=== PATIENT | male | born 1925 | race Asian ===

== ENCOUNTER 2017-02-21 12:35 | Inpatient (IN) | payer MEDICARE ==
[~2017-02-21] VITALS: Ht 172.7 cm; Wt 81.2 kg
[~2017-02-21 12:35] MED LIST: CINNAMON500 MG PO; DILT-XR120 MG PO; FISH OIL 1,0001 EAC2 PO; HYDRALAZINE HC100 MG PO; HYDROCHLOROTH12.5 MG PO; JANUVIA50 MG PO; KETOROLAC TR30 MG/ML OS; LATANOPROST2.5 ML OU; LEXAPRO10 MG PO; LOSARTAN POTASS25 MG PO; METOPROLOL SUC100 MG PO; OMEPRAZOLE20 M1 PO; PRAVASTATIN SOD20 MG PO; PREDNISOLO15 MG/5 ML OS; QUETIAPINE FUMA50 MG PO; VITAMIN D-32000 UNIT PO
[2017-02-21 13:13] LABS: BASOPHILS % 0.2 % (0.0-1.0); EOSINOPHILS # (AUTO) 0.2 (0.0-0.4); EOSINOPHILS % 1.2 % (0.0-6.0); HEMATOCRIT 42.1 % (38.2-49.6); HEMOGLOBIN 14.3 g/dL (14.0-18.0); MEAN CORPUSCULAR HEMOGLOBIN 30.8 pg (28-32); MEAN CORPUSCULAR VOLUME 90.7 fL (81-99); MONOCYTES # (AUTO) 0.8 (0.2-0.8); NEUTROPHILS # (AUTO) 11.5 (2.1-6.9); NEUTROPHILS % 85.3 % (38.7-80.0); PLATELET COUNT 232 x10e3/uL (140-360); RED BLOOD COUNT 4.64 x10e6/uL (4.3-5.7); RED CELL DISTRIBUTION WIDTH 13.8 % (11.7-14.4)
[2017-02-21 13:17] LABS: INR 0.92; PROTHROMBIN TIME 12.8 seconds (11.9-14.5)
[2017-02-21 13:18] LABS: PARTIAL THROMBOPLASTIN TIME 26.5 seconds (23.8-35.5)
[2017-02-21 13:24] LABS: ALBUMIN 3.9 g/dL (3.5-5.0); ALBUMIN/GLOBULIN RATIO 1.1 (0.8-2.0); CALCIUM 10.4 mg/dL (8.4-10.2); CREATININE, SERUM 2.37 mg/dL (0.72-1.25)
[2017-02-21 13:30] LABS: CREATINE KINASE MB 1.6 ng/mL (0.00-5.00); TROPONIN I 0.065 ng/mL (0-0.300)
[2017-02-21 13:43] LABS: AMYLASE 51 U/L (25-125); LIPASE 8 U/L (8-78)
--- NOTE | 2017-02-21 13:45 | Diagnostic Imaging Report ---
PROCEDURE:X-RAY CHEST, ONE VIEW 1301 hrs. COMPARISON:Chest x-ray 07/31/15 INDICATIONS:CHEST PAIN/VOMITING FINDINGS: There are nodular and linear densities measuring 3.5 cm in total length over the mid mediastinum which could represent a medical care evaluation specialist. This was not present on previous exam. The heart is normal in size. Aorta is ectatic calcifications of the arch. No hilar lymphadenopathy. The pulmonary vascular markings are normal. There is no evidence of soft tissue mass or infiltrate. A 4 mm left upper lobe granuloma is stable. No pleural effusion or pneumothorax. The stomach is distended with fluid. There is an air distended loop of bowel beneath the right diaphragm measuring 4.2 cm in diameter. No evidence of free air on this image. Bones: No focal osseous lesions. CONCLUSION: 1. Densities over the mid mediastinum could represent a medical care evaluation specialist. Correlate with clinical history is needed. If absent, recommend correlation with PA and lateral chest x-ray were clinically feasible. 2. Distended bowel loop in the left upper quadrant. This could represent either small bowel or large bowel. If small bowel, this could represent partial small bowel obstruction. 3. No new pulmonary process. Dictated by: Ashwin Gamino M.D. on 02/21/2017 at 13:53 Electronically approved by: Ashwin Gamino M.D. on 02/21/2017 at 13:53
[2017-02-21] MEDS ORDERED: ONDANSETRON HCL INJ 2 MG/ML VIAL IV STA (15:43)
[2017-02-21] MEDS ORDERED: SODIUM CHLORIDE 0.9% 1000ML 1,000 ML IV STA (15:43)
[2017-02-21] MEDS ORDERED: METOCLOPRAMIDE HCL 10 MG/2ML VIAL IV ONE (15:45)
[2017-02-21] MEDS ORDERED: DIATRIZOATE MEGL/DIATRIZOA SOD 30 ML BTL PO ONE (15:52)
--- NOTE | 2017-02-21 17:42 | Diagnostic Imaging Report ---
PROCEDURE: CT ABDOMEN AND PELVIS WITHOUT CONTRAST COMPARISON:None. INDICATIONS:BOWEL OBSTRUCTION, VOMITING TECHNIQUE: Axial CT images through the abdomen and pelvis were obtained without intravenous contrast. Oral contrast was administered. Coronal and sagittal reformations were created. Radiation dose: 608.02 mGy-cm FINDINGS: Lung bases: Diffusely hyperinflated with subpleural microatelectasis. There are large pericardial fat pads. Atherosclerotic calcifications are present in the aorta and coronary arteries. High density object is within the lumen of the esophagus. It is incompletely imaged and results in beam hardening artifact. Liver: Normal attenuation. No evidence of mass. Spleen: Normal size. A few punctate calcifications are present in the parenchyma. Biliary: The gallbladder is present and normal in appearance. No biliary ductal dilatation. Pancreas: Profoundly fatty replaced. Several scattered calcifications are present. No defined soft tissue mass or ductal dilatation. Adrenal Glands: No evidence of mass. Kidneys: Atrophic without cortical mass or hydronephrosis. Vasculature: The aorta is normal in diameter. The arterial structures are heavily calcified. GI: The stomach is distended with fluid and enteric contrast. Multiple small bowel loops are dilated and contain enteric contrast. These dilated small bowel loops measure up to 3.7 cm in diameter. There is small bowel that is interposed between the liver and anterior abdominal wall (axial image 20). Distal to this, the small bowel remains dilated but only contains air extending to a transition point in the right mid abdomen (axial image 63, coronal image 40). Distal to this, the small bowel loops extending to the ileocecal valve are completely collapsed. There is no evidence of pneumatosis. The large bowel is normal in diameter and contains diverticula without associated inflammation. The appendix is nonvisualized and may be absent or collapsed. Peritoneum/Retroperitoneum: No free fluid or fluid collection. No free air. Bladder: Normal. The prostate gland and seminal vesicles are absent. No ureteral dilatation. Lymph nodes: No lymphadenopathy. MSK: Diffuse degenerative changes throughout the spine. There is superior endplate compression of the L2 vertebral body. The spinal canal at this level is patent. There is no evidence of lytic or blastic lesion. CONCLUSION: 1. Small bowel obstruction with transition point in the right artemio-abdomen, likely due to adhesion. No associated soft tissue mass. No evidence of free air. 2. Diverticulosis coli. No CT evidence of diverticulitis. 3. Chronic pancreatitis with profound atrophy of the pancreas. 4. High density material in the distal esophagus of uncertain etiology. Please correlate for history of medical scientific officer placement. 5. Prostatectomy. 6. Severe atherosclerosis. Dictated by: Ashwin Gamino M.D. on 02/21/2017 at 17:49 Electronically approved by: Ashwin Gamino M.D. on 02/21/2017 at 17:49
[2017-02-21] MEDS ORDERED: PANTOPRAZOLE SO40 MG PO (18:17)
[2017-02-21] MEDS ORDERED: CARTIA XT240 MG PO (18:17)
[2017-02-21] MEDS ORDERED: ACETAMINOPHEN325 M1 PO (18:17)
[2017-02-21] MEDS ORDERED: BENZOCAINE/TETRACAINE/BUTAMBEN AERO SPRAY 56 GM CAN TOP ONE (18:30)
[2017-02-21] MEDS ORDERED: LIDOCAINE VISC 2% SOLN 15 ML UDC PO ONE ×2 (18:30)
[2017-02-21] MEDS ORDERED: DEXTROSE 50% SYRINGE 50 ML IV PRN (18:45)
[2017-02-21] MEDS ORDERED: LEVOFLOXACIN 500MG/D5W 100ML IV SCH (18:45)
[2017-02-21] MEDS: D5.45%NS/KCL 20MEQ 1,000 ML IV SCH (20:00)
[2017-02-21] MEDS: METRONIDAZOLE 500MG/NS 100ML 100 ML IV SCH (20:00)
[2017-02-21] MEDS: LEVOFLOXACIN 500MG/D5W 100ML 100 ML IV SCH (20:01)
[2017-02-21 20:45] VITALS: BP 185/92
[2017-02-21] MEDS: INSULIN REGULAR, HUMAN 100 UNIT/1 ML 3ML VIAL SQ SCH (20:45)
[2017-02-21 21:51] VITALS: BP 185/92
[2017-02-22] VITALS (7 sets, daily range): BP systolic 119–154; BP diastolic 59–73
[2017-02-22] MEDS ORDERED: LATANOPROST2.5 ML OP (04:13)
[2017-02-22] MEDS: METRONIDAZOLE 500MG/NS 100ML 100 ML IV SCH ×3 (04:43→20:00)
[2017-02-22 06:57] LABS: BASOPHILS % 0.3 % (0.0-1.0); EOSINOPHILS # (AUTO) 0.1 (0.0-0.4); EOSINOPHILS % 1.4 % (0.0-6.0); HEMATOCRIT 36.7 % (38.2-49.6); HEMOGLOBIN 12.3 g/dL (14.0-18.0); LYMPHOCYTES % 10.8 % (18.0-39.1); MEAN CORPUSCULAR HEMOGLOBIN 30.8 pg (28-32); MEAN CORPUSCULAR HGB CONC 33.5 g/dL (31-35); MONOCYTES # (AUTO) 0.8 (0.2-0.8); MONOCYTES % 9.2 % (4.4-11.3); NEUTROPHILS % 77.6 % (38.7-80.0); PLATELET COUNT 193 x10e3/uL (140-360); RED BLOOD COUNT 3.99 x10e6/uL (4.3-5.7); RED CELL DISTRIBUTION WIDTH 13.9 % (11.7-14.4)
[2017-02-22 07:17] LABS: ANION GAP 16.7 mmol/L (8-16); CALCIUM 9.2 mg/dL (8.4-10.2); CREATININE, SERUM 2.27 mg/dL (0.72-1.25); POTASSIUM 3.7 mmol/L (3.5-5.1)
[2017-02-22] MEDS: D5.45%NS/KCL 20MEQ 1,000 ML IV SCH ×2 (07:56→23:16)
--- NOTE | 2017-02-22 08:18 | History and Physical ---
PRIMARY CARE PHYSICIAN: Dr. Merrill GI DOCTOR: Dr. Bolivar CHIEF COMPLAINT: Nausea, vomiting and abdominal pain. HISTORY OF PRESENT ILLNESS: An 89-year-old man with a history of diabetes mellitus, who had upper endoscopy [address] Bolivar. He went home and felt nauseous and had some vomiting and abdominal discomfort the following day. This worsened, and therefore, came to the hospital. Here was found to have small-bowel obstruction, and admitted for further evaluation and management. PAST MEDICAL HISTORY: Diabetes mellitus, prostate cancer, status post resection, bladder cancer, status post chemotherapy, cataract surgery, glaucoma, detached retina, chronic kidney disease, stage 3, hyperlipidemia, and hearing deficits. PAST SURGICAL HISTORY: Detached retina, hernia, prostate resection. ALLERGIES: PER ELECTRONIC MEDICAL RECORDS. FAMILY HISTORY/SOCIAL HISTORY: Patient is . She has 3 children. No alcohol, illicits or cigarettes. 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 MEDICATIONS: Per electronic medical records. REVIEW OF SYSTEMS: Denies any dizziness or chest pain. PHYSICAL EXAMINATION VITAL SIGNS: Reviewed. GENERAL: A tired-appearing man resting in bed. HEENT: Anicteric. NG tube in place. CARDIOVASCULAR: Normal S1 and S2. LUNGS: Moderate breath sounds. ABDOMEN: Soft, nontender and nondistended. EXTREMITIES: No edema. SKIN: Dry. PSYCHIATRIC: Normal affect. LABS: Reviewed. MEDICATIONS: Reviewed. ASSESSMENT AND PLAN: This is an 89-year-old man with: 1. Small-bowel obstruction: Nasogastric tube in place. Surgery on board. Gastroenterology consultation as well. 2. Diverticulosis: No evidence of diverticulitis. 3. Chronic pancreatitis. 4. High density material in the distal esophagus: Defer to gastroenterology services. Patient recently had an upper endoscopy. 5. Normocytic anemia: Mild. Will follow. 6. Chronic kidney disease, stage 3: Patient is at baseline. 7. Hypercalcemia: This has resolved. 8. Hypertension: Use p.r.n. medications. 9. Prophylaxis: Will use sequential compression devices and intravenous Pepcid. 10. Disposition: Gastroenterology and surgical consultation. Job#: [id number] [place]
[2017-02-22] MEDS: FAMOTIDINE 20 MG/2 ML VIAL IV SCH ×2 (08:44→16:49)
--- NOTE | 2017-02-22 09:16 | Consultation ---
DATE OF CONSULTATION: February 22, 2017 CHIEF COMPLAINT: Pain and vomiting. HISTORY OF PRESENT ILLNESS: The patient is an 89-year-old male with a 2-day history of periumbilical abdominal pain and intermittent vomiting. No flatus. He denies, fever chills or diarrhea, however. PAST MEDICAL HISTORY: Significant for diabetes, history of prostate cancer, bladder cancer, glaucoma, chronic renal insufficiency, hyperlipidemia, poor hearing. SURGICAL HISTORY: Positive for prostate resection, hernia repair. SOCIAL HABITS: The patient has no history of alcohol abuse or smoking. REVIEW OF SYSTEMS: He has no chest pain or shortness of breath. No cough. ALLERGIES: THE PATIENT IS ALLERGIC TO CLONIDINE, LORAZEPAM, SULFA. PHYSICAL EXAMINATION VITAL SIGNS: Stable. He is afebrile. GENERAL: He is awake, alert and in no apparent distress. HEENT: Sclerae nonicteric. NECK: Supple. LUNGS: Clear. HEART: Regular rate and rhythm. No murmur. ABDOMEN: Soft. No focal tenderness or mass. NG tube is in place with a large amount of bilious material in the cannister. EXTREMITIES: Without cyanosis or edema. White cell count is 8.9, hemoglobin of 12. Creatinine of 2.2. Potassium 3.7. CT scan showed evidence of intestinal obstruction in the right abdomen. ASSESSMENT: Bowel obstruction likely secondary to adhesions. PLAN: Nasogastric tube decompression. Serial abdominal x-rays. Thank you for the consultation. Job#: [id number] [place]
[2017-02-22] MEDS: INSULIN REGULAR, HUMAN 100 UNIT/1 ML 3ML VIAL SQ SCH ×4 (11:30→21:00)
[2017-02-22 16:06] LABS: BILIRUBIN,URINE NEGATIVE (NEGATIVE); CLARITY,URINE CLEAR (CLEAR); COLOR,URINE YELLOW (YELLOW); KETONES,URINE NEGATIVE (NEGATIVE); LEUKOCYTE ESTERASE ,URINE NEGATIVE (NEGATIVE); NITRITE,URINE NEGATIVE (NEGATIVE); PROTEIN,URINE DIPSTICK TRACE (NEGATIVE); URINE UROBILINOGEN 0.2 mg/dL (0.2 - 1)
[2017-02-22] MEDS: LEVOFLOXACIN 500MG/D5W 100ML 100 ML IV SCH (16:49)
--- NOTE | 2017-02-22 18:30 | Consultation ---
DATE OF CONSULTATION: February 22, 2017 This is an 89-year-old male who presented to the hospital because of persistent abdominal pain, nausea and vomiting following an upper endoscopy done about 2 days or so ago. He denies any bleeding along with this problem. His workup revealed that he has evidence of small bowel obstructions with transition point at the right artemio-abdomen likely due to adhesions. He also has evidence of diverticulosis and chronic pancreatitis. He has been having nausea and vomiting intermittently that is why the upper endoscopy was performed. Upper endoscopy, however, only shows esophageal stricture for which he got some dilation and also reflux and gastritis. An NG tube has been placed and he is currently comfortable and doing well. His other medical problem is significant for history of diabetes, history of prostate cancer status post resection, history of bladder cancer, status post chemotherapy, history of cataract surgery, glaucoma, chronic renal disease, hyperlipidemia. ALLERGIES: NONE. PERSONAL/SOCIAL HISTORY: No alcohol use. FAMILY HISTORY: Noncontributory. CURRENT MEDICATIONS: Pepcid, Humulin. REVIEW OF SYSTEMS: Denies any chest pain. Denies any shortness of breath. Denies any dysphagia or odynophagia. Denies any dysuria or hematuria or any kind of syncopal episode. PHYSICAL EXAMINATION GENERAL: He is awake, alert and appears to be stable. He is in no acute distress at this point. VITAL SIGNS: Afebrile currently with stable vital signs. HEENT: Normocephalic, atraumatic. Sclerae anicteric. NECK: Supple. HEART: Sounds regular. LUNGS: Clear. ABDOMEN: Soft. Currently, no distention at this point, nontender. EXTREMITIES: No edema or clubbing. LABORATORY DATA: WBC 8.9, hemoglobin 12.8, hematocrit 36.7, BUN 30, creatinine 2.27. CAT scan showed evidence of small bowel obstructions along with chronic pancreatitis as well as diverticulosis. IMPRESSION 1. Abdominal pain, secondary to nausea and vomiting secondary to small bowel obstruction, currently doing better. . 2. History of reflux disease. Esophageal stricture, status post dilatations. 3. History of gastritis. 4. History of diabetes. RECOMMENDATIONS: Continue on NG tube low intermittent suction. Follow labs and clinically. Will also follow KUB tomorrow. Job#: [id number] [facility]:BRANDO STARKEY MD cc:BENJIE LAMAR MD
[2017-02-23] MEDS: METRONIDAZOLE 500MG/NS 100ML 100 ML IV SCH ×3 (04:09→20:27)
[2017-02-23 04:58] VITALS: BP 163/73
[2017-02-23 06:02] VITALS: BP 142/78
--- NOTE | 2017-02-23 06:21 | Diagnostic Imaging Report ---
EXAM: ABDOMEN-1VIEW (KUB), supine DATE: 02/23/2017 8:00 AM Time stamp on exam: 0529 hours INDICATION: Small bowel obstruction COMPARISON: CT of the abdomen and pelvis February 21, 2017 FINDINGS: LINES/TUBES: None BOWEL PATTERN: Persistent dilated loops of central small bowel. Oral contrast is seen throughout the colon to the rectum. SOFT TISSUES: Multiple surgical clips in the pelvis. LUNG BASES: Not included BONES: No acute findings. IMPRESSION: Persistent findings of partial small bowel obstruction. Signed by: Dr. Josselin Lopez M.D. on 02/23/2017 6:18 AM
[2017-02-23] MEDS: METOCLOPRAMIDE HCL 10 MG/2ML VIAL IV SCH ×3 (07:15→20:27)
--- NOTE | 2017-02-23 07:28 | Progress Note ---
DATE: February 23, 2017 TIME: 7:10 a.m. OVERNIGHT: Patient pulled out his NG tube. REVIEW OF SYSTEMS: Denies any dizziness or chest pain. Has been passing flatus. PHYSICAL EXAMINATION VITAL SIGNS: Reviewed. GENERAL: A tired-appearing man resting in bed. HEENT: Anicteric. CARDIOVASCULAR: Normal S1 and S2. LUNGS: Moderate breath sounds. ABDOMEN: Soft, nontender and nondistended. EXTREMITIES: No edema. SKIN: Dry. PSYCHIATRIC: Normal affect. LABS: Reviewed. MEDICATIONS: Reviewed. ASSESSMENT: An 89-year-old man with: 1. Small-bowel obstruction: Nasogastric tube was pulled out by the patient last night. Ambulate today. He is passing flatus. 2. Diverticulosis: No diverticulitis. 3. Chronic pancreatitis. 4. High-density material in the distal esophagus. 5. Normocytic anemia. 6. Chronic kidney disease, stage 3. 7. Hypercalcemia. 8. Hypertension. PLAN 1. Ambulate the patient. 2. Diet per GI services. 3. KUB this morning shows persistent /small-bowel obstruction. 4. Continue IV Levaquin and IV Flagyl. 5. Start IV Reglan 5 mg IV q.12 h. 6. Leukocytosis has resolved. 7. Follow up renal function today. He does have chronic kidney disease, stage 3. Job#: [id number] JOIE
[2017-02-23] MEDS: INSULIN REGULAR, HUMAN 100 UNIT/1 ML 3ML VIAL SQ SCH ×4 (07:30→20:12)
[2017-02-23 07:57] VITALS: BP 151/68
[2017-02-23] MEDS: FAMOTIDINE 20 MG/2 ML VIAL IV SCH ×2 (10:34→18:05)
[2017-02-23 12:00] VITALS: BP 188/79
[2017-02-23 15:42] VITALS: BP 170/77
[2017-02-23] MEDS: LEVOFLOXACIN 500MG/D5W 100ML 100 ML IV SCH (18:40)
[2017-02-23 19:44] VITALS: BP 143/72
[2017-02-23] MEDS: D5.45%NS/KCL 20MEQ 1,000 ML IV SCH (20:27)
[2017-02-24 00:19] VITALS: BP 141/66
[2017-02-24] MEDS: MORPHINE SULFATE 5 MG/ML VIAL IV PRN ×2 (01:48→21:25)
[2017-02-24] MEDS: ONDANSETRON HCL INJ 2 MG/ML VIAL IV PRN ×3 (01:48→21:25)
[2017-02-24] MEDS: METRONIDAZOLE 500MG/NS 100ML 100 ML IV SCH ×3 (04:25→21:25)
[2017-02-24 05:23] VITALS: BP 154/63
[2017-02-24] MEDS: INSULIN REGULAR, HUMAN 100 UNIT/1 ML 3ML VIAL SQ SCH ×4 (07:30→20:34)
[2017-02-24 07:48] VITALS: BP 152/77
[2017-02-24] MEDS: METOCLOPRAMIDE HCL 10 MG/2ML VIAL IV SCH ×2 (10:01→21:25)
[2017-02-24] MEDS: FAMOTIDINE 20 MG/2 ML VIAL IV SCH ×2 (10:01→16:45)
[2017-02-24 12:00] VITALS: BP 161/92
[2017-02-24 16:30] VITALS: BP 160/70
[2017-02-24] MEDS: LEVOFLOXACIN 500MG/D5W 100ML 100 ML IV SCH (18:00)
[2017-02-24] MEDS: D5.45%NS/KCL 20MEQ 1,000 ML IV SCH (18:33)
--- NOTE | 2017-02-24 18:53 | Diagnostic Imaging Report ---
EXAM: ABDOMEN-1VIEW (KUB) DATE: 02/24/2017 5:38 PM INDICATION: Small bowel obstruction COMPARISON: 02/23/2017 FINDINGS: Numerous surgical clips overlie the pelvis suggesting prostatectomy. Large monitoring device overlies lower abdomen and pelvis on 2 views, limiting evaluation. Upper abdomen excluded, further limiting evaluation. Prominence of small bowel loops less conspicuous. Advanced degenerative changes spine. Residual contrast present colon. IMPRESSION: Exam moderately limited technically as above. Small bowel loops less conspicuous. Signed by: Dr. Estvean Shahid MD on 02/24/2017 6:50 PM
[2017-02-24 20:00] VITALS: BP 161/79
[2017-02-25] VITALS (7 sets, daily range): BP systolic 135–175; BP diastolic 71–92
[2017-02-25] MEDS: METRONIDAZOLE 500MG/NS 100ML 100 ML IV SCH ×3 (04:30→21:28)
[2017-02-25] MEDS: D5.45%NS/KCL 20MEQ 1,000 ML IV SCH (05:08)
[2017-02-25] MEDS: INSULIN REGULAR, HUMAN 100 UNIT/1 ML 3ML VIAL SQ SCH ×4 (07:30→20:34)
[2017-02-25 10:18] LABS: BASOPHILS % 0.4 % (0.0-1.0); EOSINOPHILS # (AUTO) 0.4 (0.0-0.4); EOSINOPHILS % 6.2 % (0.0-6.0); HEMATOCRIT 38.2 % (38.2-49.6); HEMOGLOBIN 12.5 g/dL (14.0-18.0); LYMPHOCYTES # (AUTO) 0.7 (1.0-3.2); LYMPHOCYTES % 10.3 % (18.0-39.1); MEAN CORPUSCULAR HEMOGLOBIN 31.3 pg (28-32); MEAN CORPUSCULAR HGB CONC 32.7 g/dL (31-35); MEAN CORPUSCULAR VOLUME 95.5 fL (81-99); MONOCYTES # (AUTO) 0.7 (0.2-0.8); MONOCYTES % 10.1 % (4.4-11.3); NEUTROPHILS # (AUTO) 4.9 (2.1-6.9); NEUTROPHILS % 72.3 % (38.7-80.0); PLATELET COUNT 147 x10e3/uL (140-360); RED CELL DISTRIBUTION WIDTH 13.5 % (11.7-14.4)
[2017-02-25] MEDS: FAMOTIDINE 20 MG/2 ML VIAL IV SCH ×2 (10:20→16:54)
[2017-02-25] MEDS: METOCLOPRAMIDE HCL 10 MG/2ML VIAL IV SCH ×2 (10:20→21:28)
[2017-02-25 10:43] LABS: ANION GAP 11.5 mmol/L (8-16); CALCIUM 8.4 mg/dL (8.4-10.2); CREATININE, SERUM 1.78 mg/dL (0.72-1.25); MAGNESIUM 1.8 MG/DL (1.3-2.1); PHOSPHORUS 2.9 MG/DL (2.3-4.7); POTASSIUM 4.5 mmol/L (3.5-5.1)
--- NOTE | 2017-02-25 13:18 | Progress Note ---
DATE: February 24, 2017 MEDICINE PROGRESS NOTE TIME OF SERVICE: 7:30 a.m. SUBJECTIVE: Overnight he remains with NG tube. REVIEW OF SYSTEMS: Denies any dizziness, chest pain. VITAL SIGNS: Reviewed. PHYSICAL EXAMINATION GENERAL APPEARANCE: A tired-appearing man resting in bed. HEENT: Anicteric. CARDIOVASCULAR: Normal S1/S2. LUNGS: Moderate breath sounds. ABDOMEN: Soft, nontender. EXTREMITIES: No edema. SKIN: Dry. PSYCHIATRIC: Normal affect. LABS: Reviewed. MEDICATIONS: Reviewed. ASSESSMENT: An 89-year-old man. 1. Small-bowel obstruction. 2. Diverticulosis. 3. Chronic pancreatitis. 4. Normocytic anemia. 5. Chronic kidney disease stage 3. 6. Hypercalcemia. 7. Hypertension. PLAN 1. Continue NG tube. 2. Continue ambulating patient. 3. Continue antibiotics. 4. Continue Reglan. 5. Defer to surgical team. Job#: [id number] [place]
--- NOTE | 2017-02-25 13:21 | Progress Note ---
DATE: February 25, 2017 MEDICINE PROGRESS NOTE TIME OF SERVICE: 6:35 a.m. SUBJECTIVE: Overnight remains with NG tube. REVIEW OF SYSTEMS: Dizziness any dizziness. VITAL SIGNS: Reviewed. PHYSICAL EXAMINATION GENERAL APPEARANCE: A tired-appearing man resting in bed. HEENT: Anicteric. Has NG tube in place. CARDIOVASCULAR: Normal S1/S2. LUNGS: Moderate breath sounds. ABDOMEN: Soft, nontender. EXTREMITIES: No edema. SKIN: Dry. PSYCHIATRIC: Flat affect. LABS: Reviewed. MEDICATIONS: Reviewed. ASSESSMENT: An 89-year-old man. 1. Small-bowel obstruction. 2. Diverticulosis. 3. Chronic pancreatitis. 4. Normocytic anemia. 5. Chronic kidney disease stage 3. 6. Hypercalcemia. 7. Hypertension. PLAN 1. Continue NG tube. 2. Continue ambulating patient. 3. Obtain labs this morning. 4. Continue IV Levaquin and Flagyl. 5. Continue IV Reglan. 6. Leukocytosis has resolved. 7. Obtain labs. Job#: [id number] [place]
[2017-02-25] MEDS: LEVOFLOXACIN 500MG/D5W 100ML 100 ML IV SCH (16:54)
[2017-02-26] VITALS: BP_SYST 140; BP_SYST 150; BP_DIAS 66; BP_DIAS 78
[2017-02-26 04:00] VITALS: BP 172/76
[2017-02-26] MEDS: METRONIDAZOLE 500MG/NS 100ML 100 ML IV SCH ×3 (04:16→19:12)
[2017-02-26] MEDS: D5.45%NS/KCL 20MEQ 1,000 ML IV SCH ×3 (04:16→18:36)
[2017-02-26] MEDS: INSULIN REGULAR, HUMAN 100 UNIT/1 ML 3ML VIAL SQ SCH ×4 (07:30→21:00)
[2017-02-26 08:13] VITALS: BP 139/84
[2017-02-26] MEDS: ESCITALOPRAM OXALATE 10 MG TAB PO SCH (08:51)
[2017-02-26] MEDS: FAMOTIDINE 20 MG/2 ML VIAL IV SCH ×2 (08:51→17:18)
[2017-02-26] MEDS: METOCLOPRAMIDE HCL 10 MG/2ML VIAL IV SCH ×2 (08:51→21:24)
[2017-02-26 12:12] VITALS: BP 150/73
[2017-02-26 16:22] VITALS: BP 154/80
[2017-02-26] MEDS: LEVOFLOXACIN 500MG/D5W 100ML 100 ML IV SCH (17:18)
[2017-02-26 20:00] VITALS: BP 179/83
[2017-02-26] MEDS: QUETIAPINE FUMARATE 25 MG TAB PO SCH (21:24)
[2017-02-26] MEDS: PRAVASTATIN 20 MG TAB PO SCH (21:24)
[2017-02-27] VITALS: BP 141/72
[2017-02-27] MEDS: METRONIDAZOLE 500MG/NS 100ML 100 ML IV SCH ×3 (03:31→20:33)
[2017-02-27 04:00] VITALS: BP 138/76
[2017-02-27] MEDS: INSULIN REGULAR, HUMAN 100 UNIT/1 ML 3ML VIAL SQ SCH ×4 (07:30→20:36)
[2017-02-27] MEDS: D5.45%NS/KCL 20MEQ 1,000 ML IV SCH ×2 (07:56→21:16)
[2017-02-27 08:37] VITALS: BP 140/66
[2017-02-27] MEDS: FAMOTIDINE 20 MG/2 ML VIAL IV SCH ×2 (09:46→17:34)
[2017-02-27] MEDS: METOCLOPRAMIDE HCL 10 MG/2ML VIAL IV SCH ×2 (09:46→20:33)
[2017-02-27] MEDS: ESCITALOPRAM OXALATE 10 MG TAB PO SCH (09:46)
[2017-02-27 11:56] VITALS: BP 163/71
[2017-02-27] MEDS ORDERED: BISACODYL 10 MG SUPP PR ONE (13:45)
[2017-02-27 16:17] VITALS: BP 170/75
[2017-02-27] MEDS: LEVOFLOXACIN 500MG/D5W 100ML 100 ML IV SCH (17:35)
[2017-02-27 20:00] VITALS: BP 166/77
[2017-02-27] MEDS: PRAVASTATIN 20 MG TAB PO SCH (20:33)
[2017-02-27] MEDS: QUETIAPINE FUMARATE 25 MG TAB PO SCH (20:34)
[2017-02-28] VITALS: BP 139/70
[2017-02-28 04:00] VITALS: BP 134/69
--- NOTE | 2017-02-28 04:13 | Progress Note ---
DATE: February 26, 2017 TIME: 6 a.m. OVERNIGHT: Patient is doing better. Had a bowel movement. REVIEW OF SYSTEMS: Denies any dizziness. PHYSICAL EXAMINATION VITAL SIGNS: Reviewed. GENERAL: A tired-appearing man resting in bed. HEENT: Anicteric. CARDIOVASCULAR: Normal S1 and S2. LUNGS: Moderate breath sounds. ABDOMEN: Soft, nontender and nondistended. EXTREMITIES: No edema. SKIN: Dry. PSYCHIATRIC: Flat affect. LABS: Reviewed. MEDICATIONS: Reviewed. ASSESSMENT: An 89-year-old man with: 1. Small-bowel obstruction. 2. Diverticulosis. 3. Chronic pancreatitis. 4. Normocytic anemia. 5. Chronic kidney disease, stage 3. 6. Hypercalcemia. 7. Hypertension. PLAN 1. Ambulate the patient. 2. Follow up labs. 3. Continue IV Levaquin and IV Flagyl. 4. Continue IV Reglan. 5. The patient appears to be improving. Job#: [id number] [place]
--- NOTE | 2017-02-28 04:17 | Progress Note ---
DATE: February 27, 2017 TIME: 6 a.m. OVERNIGHT: Patient was confused per his after receiving Seroquel and Lexapro home medications. REVIEW OF SYSTEMS: Unreliable. PHYSICAL EXAMINATION VITAL SIGNS: Reviewed. GENERAL: A tired-appearing man resting in bed. HEENT: Anicteric. CARDIOVASCULAR: Normal S1 and S2. LUNGS: Moderate breath sounds. ABDOMEN: Soft, nontender and nondistended. EXTREMITIES: No edema. SKIN: Dry. PSYCHIATRIC: Unable to assess. LABS: Reviewed. MEDICATIONS: Reviewed. ASSESSMENT: An 89-year-old man with: 1. Small-bowel obstruction. 2. Diverticulosis. 3. Chronic pancreatitis. 4. Normocytic anemia. 5. Chronic kidney disease, stage 3. 6. Hypercalcemia. 7. Sundowning. PLAN 1. Discontinuation of Seroquel. 2. Discussed psychosis with the patient's and sundowning. 3. Follow up labs this morning. 4. He has been receiving IV Flagyl and IV Levaquin. 5. IV Reglan. 6. All cultures remain negative. 7. Physical therapy. Job#: [id number] JOIE
[2017-02-28] MEDS: METRONIDAZOLE 500MG/NS 100ML 100 ML IV SCH ×3 (04:43→20:30)
--- NOTE | 2017-02-28 06:22 | Diagnostic Imaging Report ---
ABDOMEN-1VIEW (KUB) Clinical history: Follow-up small bowel obstruction Technique: AP view abdomen Comparison: 02/26/2017 Findings: Abdomen: No differentially dilated air-filled loops of bowel. Other: Clips overlie the pelvis. Newly visualized density overlying the left mid abdomen may be external. Multilevel degenerative changes. Atherosclerotic calcifications. Impression: No radiographic evidence of small bowel obstruction on portable supine technique Signed by: Dr Pam Ward MD on 02/28/2017 6:18 AM
[2017-02-28 06:59] LABS: BASOPHILS % 0.6 % (0.0-1.0); EOSINOPHILS # (AUTO) 0.4 (0.0-0.4); EOSINOPHILS % 8.4 % (0.0-6.0); HEMATOCRIT 31.9 % (38.2-49.6); HEMOGLOBIN 10.8 g/dL (14.0-18.0); LYMPHOCYTES # (AUTO) 0.8 (1.0-3.2); MEAN CORPUSCULAR HEMOGLOBIN 31.6 pg (28-32); MEAN CORPUSCULAR HGB CONC 33.9 g/dL (31-35); MEAN CORPUSCULAR VOLUME 93.3 fL (81-99); MONOCYTES # (AUTO) 0.6 (0.2-0.8); MONOCYTES % 12.2 % (4.4-11.3); NEUTROPHILS # (AUTO) 3.3 (2.1-6.9); NEUTROPHILS % 61.8 % (38.7-80.0); PLATELET COUNT 139 x10e3/uL (140-360); RED BLOOD COUNT 3.42 x10e6/uL (4.3-5.7)
[2017-02-28 07:23] LABS: ALBUMIN 2.6 g/dL (3.5-5.0); ALBUMIN/GLOBULIN RATIO 1.1 (0.8-2.0); ANION GAP 10.9 mmol/L (8-16); CREATININE, SERUM 1.98 mg/dL (0.72-1.25); POTASSIUM 3.9 mmol/L (3.5-5.1)
[2017-02-28] MEDS: INSULIN REGULAR, HUMAN 100 UNIT/1 ML 3ML VIAL SQ SCH ×4 (07:30→21:00)
[2017-02-28] MEDS: LOSARTAN POTASSIUM 25 MG TAB PO SCH (08:40)
[2017-02-28] MEDS: FAMOTIDINE 20 MG/2 ML VIAL IV SCH ×2 (08:40→16:05)
[2017-02-28] MEDS: METOCLOPRAMIDE HCL 10 MG/2ML VIAL IV SCH ×2 (08:40→20:30)
[2017-02-28] MEDS: ESCITALOPRAM OXALATE 10 MG TAB PO SCH (08:40)
[2017-02-28] MEDS ORDERED: DILTIAZEM HCL PO SCH (09:00)
[2017-02-28 10:09] VITALS: BP 121/51
[2017-02-28] MEDS: DILTIAZEM HCL 120 MG CAP CD PO SCH (10:15)
[2017-02-28] MEDS: D5.45%NS/KCL 20MEQ 1,000 ML IV SCH (10:16)
[2017-02-28 13:55] VITALS: BP 151/72
[2017-02-28] MEDS: LEVOFLOXACIN 500MG/D5W 100ML 100 ML IV SCH (17:44)
[2017-02-28 20:00] VITALS: BP 167/75
[2017-02-28] MEDS: QUETIAPINE FUMARATE 25 MG TAB PO SCH (20:30)
[2017-02-28] MEDS: PRAVASTATIN 20 MG TAB PO SCH (20:30)
[2017-03-01] VITALS: BP 137/65
[2017-03-01 04:00] VITALS: BP 113/56
[2017-03-01] MEDS: METRONIDAZOLE 500MG/NS 100ML 100 ML IV SCH ×2 (04:30→12:49)
[2017-03-01] MEDS: D5.45%NS/KCL 20MEQ 1,000 ML IV SCH (05:31)
[2017-03-01] MEDS: INSULIN REGULAR, HUMAN 100 UNIT/1 ML 3ML VIAL SQ SCH ×2 (07:30→11:30)
[2017-03-01 08:37] VITALS: BP 117/62
[2017-03-01] MEDS: METOCLOPRAMIDE HCL 10 MG/2ML VIAL IV SCH (10:05)
[2017-03-01] MEDS: FAMOTIDINE 20 MG/2 ML VIAL IV SCH (10:05)
[2017-03-01] MEDS: LOSARTAN POTASSIUM 25 MG TAB PO SCH (10:06)
[2017-03-01] MEDS: DILTIAZEM HCL 120 MG CAP CD PO SCH (10:06)
[2017-03-01] MEDS: ESCITALOPRAM OXALATE 10 MG TAB PO SCH (10:06)
[2017-03-01 12:00] VITALS: BP 143/64
--- NOTE | 2017-03-01 16:46 | Diagnostic Imaging Report ---
PROCEDURE:X-RAY ABDOMEN - KUB COMPARISON:Patients [facility], DX, ABDOMEN-1VIEW (KUB), 02/24/2017, 18:14. INDICATIONS:OBSTRUCTION. CONSTIPATION FINDINGS: See conclusion. CONCLUSION: 1. Nonobstructive bowel gas pattern. No dilated, air-filled loops of bowel. Mild to moderate amount of retained stool. 2. Multiple metallic clips are again noted in the pelvis. 3. Left basilar atelectatic changes. 4. No acute bony abnormalities. Bart Mendez M.D. Dictated by: Bart Mendez M.D. on 03/01/2017 at 16:55 Electronically approved by: Bart Mendez M.D. on 03/01/2017 at 16:55
--- NOTE | 2017-03-01 16:52 | Discharge Summary ---
FINAL DISCHARGE DIAGNOSES 1. Small-bowel obstruction, resolved. 2. Diverticulosis. 3. Chronic pancreatitis. 4. Sundowning. CONSULTANTS: General Surgery and Gastroenterology. VITAL SIGNS: Temperature 98.9, blood pressure 117/62, pulse is 80. He is on room air. LAB FINDINGS: Show CBC is normal. Chemistries were sodium 139, potassium was 3.9, chloride was 111, bicarbonate was 21, his BUN was 14, and his creatinine was 1.98. LFTs were normal, and troponins were negative. Albumin was 2.6. Urinalysis negative. Coagulations normal. MICROBIOLOGY: Urine cultures were negative. IMAGING STUDIES: Chest x-ray on admission showed evidence of small-bowel obstruction. CT abdomen and pelvis showed small-bowel obstruction, chronic pancreatitis seen. Then x-ray on discharge on February 28, 2017, showed no evidence of small-bowel obstruction. HOSPITAL COURSE: An 89-year-old male came in with nausea, vomiting, decreased oral intake. Imaging studies were consistent with small-bowel obstruction. General Surgery and GI were consulted. Patient had an NG tube to intermittent wall suctioning, and patient improved throughout the hospital course. Nasogastric tube was removed. Started on a clear-liquid diet, advanced to a regular and tolerated well. Patient was cleared by both General Surgery and GI for discharge home. On discharge his vital signs were stable, labs reviewed and stable. Patient seen and evaluated and examined thoroughly on the day of discharge with no other complaints. Patient verbalized understanding and agreed with the plan of care, will follow up accordingly as an outpatient with General Surgery and GI and PCP in next 1 to 2 weeks. MEDICATIONS: See medicine reconciliation form. DISPOSITION: To home. CONDITION: Stable. FOLLOWUP: With General Surgery and GI in 1 to 2 weeks as well as PCP in 1 week. In the event of any worsening symptoms, the patient advised to come back to the ED for further evaluation. Discharge summary took greater than 35 minutes. BRITT LEVINE MD Job#: [id number] [place]
== END 2017-03-01 13:50 | disposition home or self-care (01) | DRG 389 ==
LOC: ER 12:35 → ERHOLD 18:59 → MED/SURG2 20:04 → MED/SURG 02-22 22:39
PROVIDERS: ADMIT Internal Medicine; ATTEND Internal Medicine
DX: K56.609 Unspecified intestinal obstruction, unspecified as to partial versus complete obstruction (principal); K86.1 Other chronic pancreatitis; E11.22 Type 2 diabetes mellitus with diabetic chronic kidney disease; F05 Delirium due to known physiological condition; E83.52 Hypercalcemia; K22.2 Esophageal obstruction; N18.3 Chronic kidney disease, stage 3 (moderate); Z85.46 Personal history of malignant neoplasm of prostate; I12.9 Hypertensive chronic kidney disease with stage 1 through stage 4 chronic kidney disease, or unspecified chronic kidney disease; K57.10 Diverticulosis of small intestine without perforation or abscess without bleeding; D64.9 Anemia, unspecified; K29.70 Gastritis, unspecified, without bleeding
CPT/HCPCS: 36415; 71010; 74000; 74176; 80048; 80053; 81001; 82150; 82550; 82553; 82948; 83690; 83735; 83880; 84100; 84484; 85025; 85610; 85730; 87086; 93005; 99284; J1956; J2270; J2405; J2765; J7030